=== PATIENT | male | born 1950 | race Two or more races ===

== ENCOUNTER 2022-07-08 05:10 | Day surgery (SDC) | payer OTHER ==
[~2022-07-08 05:10] MED LIST: ACID REDUCER20 M1 PO; CHILDREN'S ASPI81 MG PO; COZAAR100 MG PO; CRESTOR20 MG PO; FINASTERIDE5 MG PO; TOPROL XL100 M1 PO
[2022-07-08] MEDS ORDERED: PERCOCET 5-3251 EACH PO (08:54)
== END 2022-07-08 11:30 | disposition home or self-care (01) ==
LOC: CIR.AMB 05:10
PROVIDERS: ATTEND Surgery
DX: E04.2 Nontoxic multinodular goiter (principal); E06.3 Autoimmune thyroiditis; I10 Essential (primary) hypertension; Z87.891 Personal history of nicotine dependence